=== PATIENT | male | born 1950 | race Caucasian/White ===

== ENCOUNTER 2023-04-02 09:09 | Emergency (ER) | payer MEDICARE, MEDICAID, SELFPAY ==
--- NOTE | ~2023-04-02 | XR_ITS ---
XR chest 2V DATE: 04/02/2023 10:33 INDICATION: Generalized chest pain following fall from wheelchair today TECHNIQUE: AP and lateral views COMPARISON: None FINDINGS: Status post sternotomy. Mild cardiomegaly. Aortic arch calcification, aortic unfolding. Mild discoid atelectasis or scar, left midlung. The lungs are clear of infiltrate or consolidation. N o pleural effusion or pulmonary vascular congestion or pneumothorax is detected. Status post lower anterior cervical spine surgical fusion. IMPRESSION: Mild discoid atelectasis or scar, left midlung Mild cardiomegaly Status post sternotomy Aortic atherosclerosis Status post lower cervical anterior surgical fusion Reviewed, dictated and finalized at location [facility]. CULTIVATOR
--- NOTE | ~2023-04-02 | CT_ITS ---
EXAMINATION: CT brain wo con DATE: 04/02/2023 10:19 INDICATION: Unwitnessed fall. Patient on MLO). Dementia. TECHNIQUE: Computed tomography (CT) of the head was performed without intravenous contrast. The mA wa s adjusted according to patient size. Iterative reconstruction technique was employed. Exam dose: 60 5.33 mGy-cm total exam DLP. COMPARISON: None FINDINGS: Prominent bilateral vertebral artery calcification and prominent bilateral carotid siphon i nternal carotid artery calcifications. There is focal chronic encephalomalacia in the right frontal lobe, which may be due to old infarct or hematoma. No prior CT examination of the head is available for comparison. Chronic lacunar infarct in the left periventricular area No intracranial mass lesion or hemorrhage, midline shift or mass effect. No subdural or epidural bar gayle is detected. There is nonspecific diminished attenuation cerebral white matter, likely due to chronic small vessel ischemic changes. The included mastoid air cells and paranasal sinuses are normally developed and well aerated with the exception of an underdeveloped right frontal sinus. No fracture or bone destruction of the cranial vault. IMPRESSION: Focal right frontal encephalomalacia consistent with old infarct or hematoma Cerebral atherosclerosis and chronic small vessel ischemic changes of the cerebral white matter No skull fracture or acute intracranial finding Reviewed, dictated and finalized at [facility]. Reviewed, dictated and finalized at location [facility]. REMOVAL/PLOWING IMPRESSION: Focal right frontal encephalomalacia consistent with old infarct o r hematoma Cerebral atherosclerosis and chronic small vessel ischemic changes of the cereb ral white matter No skull fracture or acute intracranial finding
[2023-04-02 09:11] VITALS: BP 130/67; PULSE 86; RESP 17; TEMP 36.6; O2SAT 98
--- NOTE | 2023-04-02 09:22 | ECG_ITS ---
Measurements Intervals [place] Rate: 86 P: 35 IA: 183 QRS: -54 QRSD: 107 T: 86 QT: 382 QTc: 459 Interpretive Statements SINUS RHYTHM PATTERN CONSISTENT WITH PULMONARY DISEASE LEFT ANTERIOR FASCICULAR BLOCK [QRS AXIS <= -45, QR IN I, RS IN II] NONSPECIFIC ST & T-WAVE ABNORMALITY NO PREVIOUS ECG AVAILABLE FOR COMPARISON Electronically Signed On 04-02-2023 19:49:24 FOOD ANALYST by Alona Clifton M.D.
[2023-04-02 09:34] LABS: Basophils Absolute Auto 0.1 K/mm3 (0.0-0.1); Basophils Percent Auto 0.6 % (0.2-1.2); Eosinophils Absolute Auto 0.1 K/mm3 (0-0.3); Eosinophils Percent Auto 0.5 % (0-4.4); Hematocrit 44.5 % (42.0-52.0); Hemoglobin 14.1 g/dL (14.0-18.0); Lymphocytes Absolute Auto 1.36 K/mm3 (0.9-3.2); Lymphocytes Percent Auto 13.1 % (18.3-44.2); Mean Corpuscular HGB Conc 31.7 g/dl (32-36); Mean Corpuscular Volume 88.5 fl (80-100); Mean Platelet Volume 10.3 fl (7.4-10.4); Monocytes Absolute Auto 0.8 K/mm3 (0.1-0.6); Monocytes Percent Auto 7.8 % (2.6-8.5); Platelet Count Result 247 k/mm3 (150-375); Red Blood Count 5.03 M/mm3 (4.6-6.20); Red Cell Distribution Width 14.6 % (11.5-14.5); White Blood Count 10.4 K/mm3 (4.5-10.0)
--- NOTE | 2023-04-02 09:38 | ED.GENADULT ---
HPI - General Adult General Chief complaint: Fall Stated complaint: fall Time Seen by Provider: 04/02/23 09:10 Source: patient and old records reviewed Mode of arrival: EMS Limitations: dementia History of Present Illness HPI narrative: Patient is a 72-year-old male, with past medical history of dementia, who presents the ED via EMS with report of a fall. Patient is a resident of [facility]. Per [facility] staff, he had a fall out of his wheelchair while trying to get in to his bed. This was unwitnessed. They found patient on the ground. It is unknown if he hit his head or lost consciousness. He is on Eliquis. Patient unable to tell me how the fall occurred. Does not remember falling. He complains of pain to his chest and head. Unable to tell me when chest pain started or describe this further. Denies neck or back pain. Denies shortness of breath. Review of Systems Review of Systems: CONSTITUTIONAL: Denies fever, chills, or sweats. CARDIOVASCULAR: See HPI RESPIRATORY: Denies cough or dyspnea. GASTROINTESTINAL: Denies abdominal pain, nausea, vomiting. MUSCULOSKELETAL: Denies back pain, extremity pain, myalgia. NEUROLOGIC: See HPI All systems reviewed & are unremarkable except as noted in HPI and below Exam Narrative: GENERAL: Chronically ill appearing, morbidly obese with BMI of 42.5, non-toxic, in no acute distress. HEAD: Normocephalic, atraumatic. No contusions or obvious hematomas. RESPIRATORY: Airway patent, respirations nonlabored. Clear to auscultation bilaterally. No significant focal lung sounds. No distress. CARDIOVASCULAR: Regular rate and rhythm without murmurs, rubs, or gallops. ABDOMINAL: Soft, nontender, nondistended. Normoactive BS. GENITAL: Scrotum appears erythematous and enlarged, nontender. Patient reports this is a chronic finding. MUSCULOSKELETAL: No gross deformities. R BKA. Mild tremor of LLE. No appreciable midline thoracic or lumbar spinal tenderness. SKIN: Warm, dry, normal color. NEURO: A&O X2-3, able to answer most questions. Speech clear. Cranial nerves II-XII grossly intact. No ataxic movements. PSYCHIATRIC: Flat affect. Normal interaction. Course Vital Signs Vital signs: Vital Signs Temperature 97.8 F 04/02/23 09:11 Pulse Rate 86 04/02/23 09:11 Respiratory Rate 17 04/02/23 09:11 Blood Pressure 130/67 04/02/23 09:11 Pulse Oximetry 98 04/02/23 09:11 Oxygen Delivery Room Air 04/02/23 09:11 Temperature 97.8 F 04/02/23 09:11 Pulse Rate 86 04/02/23 09:11 Respiratory Rate 17 04/02/23 09:11 Blood Pressure 153/78 H 04/02/23 09:47 Pulse Oximetry 99 04/02/23 10:00 Oxygen Delivery Room Air 04/02/23 09:11 Medical Decision Making MDM Narrative Medical decision making narrative: Patient presented to ED from local [facility] with unwitnessed ground level fall from , unknown head injury. Hx dementia, does appear slightly confused, though able to answer all my questions. On Eliquis. Patient complaining of pain to head, chest. No traumatic findings on exam. CT brain without acute findings. Patient refused CT of the cervical spine. No significant midline spinal tenderness on my exam. Initial EKG with nonspecific ST changes, no acute ST elevation or depression. Baseline troponin negative. Chest x-ray without acute findings, no focal consolidation. Basic laboratory studies fairly unremarkable. Minimal leukocytosis of 10.4. Stable kidney function, normal electrolytes. 3hr Troponin also resulted negative. Patient w/o any ongoing chest pain. Does c/o nonspecific pain all over but reporting he just wants to leave and go home. Patient will be discharged back to fpc. Given return precautions. D/C in stable condition. Medical Records Medical records reviewed: Yes I reviewed the external patient's medical records. Vital Signs Vital Signs: Vital Signs Temperature 97.8 F 04/02/23 09:11 Pulse Rate 86 04/02/23 09:11
[2023-04-02 09:42] VITALS: O2SAT 95
[2023-04-02 09:45] VITALS: O2SAT 100
[2023-04-02 09:47] VITALS: BP 153/78; O2SAT 100
[2023-04-02 09:47] LABS: INR 1.1; Prothrombin Time 14.4 Seconds (11.1-14.7)
[2023-04-02 09:48] LABS: Partial Thromboplastin Time 32.6 SECONDS (22.3-36.8)
[2023-04-02 09:49] LABS: Alanine Aminotransferase 20 U/L (6-50); Albumin Level 4.2 g/dL (3.5-5.1); Alkaline Phosphatase 96 U/L (38-126); Anion Gap 12 mmol/L (8-16); Aspartate Amino Transferase 18 U/L (17-59); Bilirubin,Total 0.8 mg/dL (0.2-1.3); Blood Urea Nitrogen 13 mg/dL (9-20); Calcium 9.2 mg/dL (8.4-10.2); Carbon Dioxide 23 mmol/L (22-30); Chloride 99 mmol/L (98-107); Estimated CRCL calculation 82 ml/min; Estimated Glomerular Filt Rate > 60; Glucose 200 mg/dL (65-110); Lipase 53 U/L (23-300); Sodium 134 mmol/L (137-145)
[2023-04-02 10:00] VITALS: O2SAT 99
[2023-04-02 10:00] LABS: NT Pro B Type Natriuretic Pept 350 pg/mL (19.9-100); Troponin I < 0.012 ng/mL (0.000-0.034)
[2023-04-02 13:09] LABS: Troponin I < 0.012 ng/mL (0.000-0.034)
== END 2023-04-02 16:33 ==
PROVIDERS: Emergency Provider Physician Assistant; PCP Hospitalist
DX: S09.90XA Unspecified injury of head, initial encounter (principal); F03.90 Unspecified dementia, unspecified severity, without behavioral disturbance, psychotic disturbance, mood disturbance, and anxiety; Z79.01 Long term (current) use of anticoagulants; R94.31 Abnormal electrocardiogram [ECG] [EKG]; I51.7 Cardiomegaly; I70.0 Atherosclerosis of aorta; Z98.1 Arthrodesis status; I67.2 Cerebral atherosclerosis; W05.0XXA Fall from non-moving wheelchair, initial encounter
CPT/HCPCS: 36415; 70450; 71046; 80053; 83690; 83880; 84484; 85025; 85610; 85730; 93005; 99284

== ENCOUNTER 2023-05-21 13:46 | Emergency (ER) | payer MEDICARE, MEDICAID, SELFPAY ==
--- NOTE | ~2023-05-21 | CT_ITS ---
CT head without contrast Indication: Status post fall COMPARISON: 04/02/2023 Technique: Serial scans were obtained through the brain without the administration of contrast. Dose reduction technique was used on this scan by utilizing automated exposure control and iterative recon struction technique. The dose-length product (DLP) was 681.00 mGy-cm. Findings: There is no evidence of intracranial hemorrhage, mass lesion, or acute infarct. The ventri cles and subarachnoid spaces are dilated, consistent with mild atrophy. Stable area of chronic enceph alomalacia in the right frontal lobe. There is no evidence of edema, mass effect or midline shift. The visualized paranasal sinuses and mastoid air cells are clear. Impression: No intracranial hemorrhage, mass, or acute infarct. Stable chronic encephalomalacia right frontal lobe. Atrophy and chronic white matter changes, as above. Reviewed, dictated and finalized at [facility]. PROCESS HELPER Impression: No intracranial hemorrhage, mass, or acute infarct. Stable chronic encephalomalacia right frontal lobe. Atrophy and chronic white matter changes, as above.
--- NOTE | ~2023-05-21 | XR_ITS ---
AP view of the pelvis Clinical history: Pain Findings: No acute fracture or dislocation is seen. Osseous alignment is anatomic. Bilateral hip and SI joint spaces are preserved. Soft tissues are unremarkable. Impression: No significant abnormality is seen. Reviewed, dictated and finalized at location [facility]. ESS CASHIER Impression: No significant abnormality is seen.
--- NOTE | ~2023-05-21 | XR_ITS ---
Portable chest x-ray Comparison: 04/02/2023 Clinical History: Status post fall Findings: Lungs are clear, without focal consolidation or pleural effusion. Cardiomediastinal silho uette is stable, with loop recorder. Bones and soft tissues are unremarkable. Impression: Clear lungs. Reviewed, dictated and finalized at location . D ENGINEER Impression: Clear lungs.
[2023-05-21 13:40] VITALS: BP 122/75; PULSE 65; RESP 17; TEMP 36.6; O2SAT 98
--- NOTE | 2023-05-21 13:46 | ECG_ITS ---
Measurements Intervals [place] Rate: 64 P: 30 [place]: 197 QRS: -57 QRSD: 114 T: 142 QT: 444 QTc: 458 Interpretive Statements SINUS RHYTHM LEFT ANTERIOR FASCICULAR BLOCK [QRS AXIS <= -45, QR IN I, RS IN II] POSSIBLE ANTERIOR MYOCARDIAL INFARCTION , OF INDETERMINATE AGE [30 ms Q WAVE IN V3/V4, OR R < 0.2 mV IN V4] NONSPECIFIC ST AND T-WAVE ABNORMALITY ABNORMAL ECG COMPARED TO ECG 04/02/2023 09:43:17 NO SIGNIFICANT CHANGES Electronically Signed On 05-21-2023 14:16:54 POLE TRUCK DRIVER by Shorty Ba M.D.
--- NOTE | 2023-05-21 14:21 | ED.FALL ---
HPI - Fall General Chief Complaint: Fall Stated Complaint: unwitnessed GLF Time Seen by Provider: 05/21/23 14:03 Source: patient and EMS Mode of arrival: EMS Limitations: other (cognitive deficit) History of Present Illness HPI Narrative: Patient presents to the emergency department after an unwitnessed fall at his facility. Patient reports he slipped out of the bed. He is on anticoagulation so was sent in for further evaluation. He denies any focal pain or injuries. Related Data Allergies Allergy/AdvReac Type Severity Reaction Status Date / Time No Known Allergies Allergy Verified 05/21/23 16:11 Review of Systems Review of Systems: ROS unobtainable: Yes unobtainable due to medical condition [facility] Past Medical History Medical History (Updated 05/21/23 @ 16:19 by Alberta Spann PA-C) History of COPD History of diabetes mellitus History of gastroesophageal reflux (GERD) History of hypertension Social History Social History (Updated 05/21/23 @ 14:23 by Alberta Spann PA-C) Substance use: never Exam Narrative: GENERAL: Elderly, well-nourished, and in no acute distress. HEAD: Normocephalic, atraumatic. EYES: PERRLA and EOMI. ENT: Nares clear, no rhinorrhea or epistaxis. Mucous membranes moist. Oropharynx without tonsillar hypertrophy exudate or other lesions. Bilateral TMs pearly thomas non-bulging NECK: Supple. No adenopathy or masses. No midline spinal tenderness CHEST: Clear to auscultation. No respiratory distress. No wheezes rales or rhonchi HEART: Regular rate and rhythm. No murmur heard. Normal peripheral pulses. ABDOMEN: Soft, nontender, nondistended, normal active bowel sounds. BACK: No midline spinal tenderness EXTREMITIES: Normal range of motion. No edema or obvious deformity. Right BKA SKIN: Warm, dry, no rash. NEURO: No focal deficits. Alert and oriented x1-2. CN II-XII grossly intact PSYCH: Flat mood and affect Course Course Emergency Course: Patient updated on his workup Vital Signs Vital signs: Vital Signs Temperature 97.9 F 05/21/23 13:40 Pulse Rate 65 05/21/23 13:40 Respiratory Rate 17 05/21/23 13:40 Blood Pressure 122/75 05/21/23 13:40 Pulse Oximetry 98 05/21/23 13:40 Oxygen Delivery Room Air 05/21/23 13:40 Temperature 97.9 F 05/21/23 13:40 Pulse Rate 71 05/21/23 16:11 Respiratory Rate 15 05/21/23 16:11 Blood Pressure 116/73 05/21/23 16:11 Pulse Oximetry 99 05/21/23 16:11 Oxygen Delivery Room Air 05/21/23 13:40 MDM - Fall MDM Narrative Medical decision making narrative: Patient presents to the emergency department after an unwitnessed fall today at his facility. Patient is on anticoagulation so was sent for evaluation. No obvious signs of trauma. Patient denies any pain. His vitals are stable. He is neurologically intact at baseline. CBC and metabolic panel without concerning findings. UA with evidence of infection. This will be sent for culture. Patient will be started on oral antibiotics. Chest and pelvic x-ray without acute findings. CT brain without acute abnormalities. Patient updated on his workup. Instructed to follow up with primary provider. Given warnings to return to the ER Differential Diagnosis Differential diagnosis: Likely concussion without loss of consciousness and other (intracranial hemorrhage, electrolyte derangement, UTI) Lab Data Attestation: I reviewed the patient's lab results. 05/21/23 15:01 05/21/23 15:01 Labs: Lab Results 05/21/23 Range/Units 15:01 WBC 6.7 (4.5-10.0) K/mm3 RBC 5.23 (4.6-6.20) M/mm3 Hgb 14.9 (14.0-18.0) g/dL Hct 45.9 (42.0-52.0) % MCV 87.8 (80-100) fl MCH 28.5 (26-34) pg MCHC 32.5 (32-36) g/dl RDW 14.2 (11.5-14.5) % Plt Count 210 (150-375) k/mm3 MPV 10.6 H (7.4-10.4) fl Immature Gran % (Auto) 1.2 H (0-0.5) % Neut % (Auto) 68.9 (45.5-73.1) % Lymph % (Auto) 15.2 L (18.3-44.2) % [place] % (Auto)
--- NOTE | 2023-05-21 14:40 | PC.NURSE ---
Pt to CT scan via stretcher at this time.
[2023-05-21 15:09] VITALS: BP 110/66; PULSE 64; RESP 17; O2SAT 100
[2023-05-21 15:09] LABS: Basophils Percent Auto 0.6 % (0.2-1.2); Eosinophils Absolute Auto 0.1 K/mm3 (0-0.3); Eosinophils Percent Auto 1.9 % (0-4.4); Hematocrit 45.9 % (42.0-52.0); Hemoglobin 14.9 g/dL (14.0-18.0); Immature Granulocyte Absolute 0.08 K/mm3 (0.00-0.031); Immature Granulocyte Percent A 1.2 % (0-0.5); Lymphocytes Absolute Auto 1.02 K/mm3 (0.9-3.2); Lymphocytes Percent Auto 15.2 % (18.3-44.2); Mean Corpuscular HGB Conc 32.5 g/dl (32-36); Mean Corpuscular Hemoglobin 28.5 pg (26-34); Mean Corpuscular Volume 87.8 fl (80-100); Mean Platelet Volume 10.6 fl (7.4-10.4); Monocytes Absolute Auto 0.8 K/mm3 (0.1-0.6); Monocytes Percent Auto 12.2 % (2.6-8.5); Neutrophils Absolute Auto 4.6 K/mm3 (1.3-6.7); Neutrophils Percent Auto 68.9 % (45.5-73.1); Platelet Count Result 210 k/mm3 (150-375); Red Blood Count 5.23 M/mm3 (4.6-6.20); Red Cell Distribution Width 14.2 % (11.5-14.5); White Blood Count 6.7 K/mm3 (4.5-10.0)
[2023-05-21 15:19] LABS: Creatine Kinase 34 U/L (55-170)
[2023-05-21 15:33] LABS: Appearance Urine Clear (Clear); Bacteria Urine None Seen /hpf; Bilirubin Urine Negative (Negative); Blood Urine Negative (Negative); Budding Yeast Urine Present /hpf; Color Urine Yellow (Yellow); Glucose Urine UA 3+ mg/dL (Negative); Ketones Urine Negative (Negative); Leukocyte Esterase Ur 1+ LEU/UL (Negative); Nitrate Urine Negative (Negative); Non Pathogenic Casts 0-2; Protein Urine Negative (Negative); RBC Urine 0-2 /hpf (0-2); Specific Grav Ur 1.014 (1.001-1.035); Squamous Epithelial Cell Urine None seen /hpf (Few); Urobilinogen Urine 0.2 mg/dL (<2.0); WBC Urine 21-50 /hpf; pH Urine 5.5 (5.0-9.0)
[2023-05-21 15:34] LABS: Add Urine Microscopic? YES
[2023-05-21 16:11] VITALS: BP 116/73; PULSE 71; RESP 15; O2SAT 99
[2023-05-21 16:11] LABS: Anion Gap 8 mmol/L (8-16); Blood Urea Nitrogen 16 mg/dL (9-20); Carbon Dioxide 23 mmol/L (22-30); Chloride 104 mmol/L (98-107); Estimated CRCL calculation 75 ml/min; Estimated Glomerular Filt Rate 60; Glucose 160 mg/dL (65-110); Potassium 3.8 mmol/L (3.4-5.0); Sodium 135 mmol/L (137-145)
--- NOTE | 2023-05-21 16:14 | PC.NURSE ---
nurse to nurse report called to [facility] at this time, spoke to Lucía and gave update on pt status and POC
--- NOTE | 2023-05-21 18:10 | PC.NURSE ---
This RN offered pt a dinner tray while waiting for EMS transport, declined. States I will wait to eat for when I get back. Pt given a drink as requested.
== END 2023-05-21 19:35 ==
PROVIDERS: Emergency Provider Physician Assistant; PCP Hospitalist
DX: N39.0 Urinary tract infection, site not specified (principal); J44.9 Chronic obstructive pulmonary disease, unspecified; E11.9 Type 2 diabetes mellitus without complications; I10 Essential (primary) hypertension; Z79.01 Long term (current) use of anticoagulants; W06.XXXA Fall from bed, initial encounter
CPT/HCPCS: 36415; 70450; 71045; 72170; 80048; 81001; 82550; 85025; 87086; 93005; 99284

== ENCOUNTER 2023-05-22 15:14 | Emergency (ER) | payer MEDICARE, MEDICAID, SELFPAY ==
--- NOTE | ~2023-05-22 | CT_ITS ---
Noncontrast CT scan of the cervical spine Technique: Multiple contiguous axial [address] images of the cervical spine were obtained and rec onstructed in 2D sagittal and coronal planes on the acquisition scanner. Dose reduction technique was used on this scan by utilizing automated exposure control, adjustment of the mA and/or kV according to patient size. The dose-length product (DLP) was 603.81 mGy-cm. Clinical History: Pain Findings: No acute fracture identified. There is anterior fusion of C5-C7. There is severe degenerati ve disc narrowing at C4-C5. There is 2 mm anterolisthesis of C3 over C4. There is scattered facet gabriele nt degenerative changes throughout cervical spine. No prevertebral soft tissue swelling. Impression: No acute fracture. 2 mm anterolisthesis of C3 over C4. Anterior fusion of C5-C7. Degenerative change, as above. Reviewed, dictated and finalized at [facility]. ITY CHECKER Impression: No acute fracture. 2 mm anterolisthesis of C3 over C4. Anterior fusion of C5-C7. Degenerative change, as above.
--- NOTE | ~2023-05-22 | CT_ITS ---
Non-contrast Head CT History: Status post fall COMPARISON: 05/21/2023 Technique: Axial non-contrast imaging of the brain was performed. Dose reduction technique was used on this scan by utilizing automated exposure control and iterative reconstruction technique. The dose -length product (DLP) was 605.33 mGy-cm. Findings: There is no evidence of intracranial hemorrhage, mass lesion, or acute infarct. Stable chr onic encephalomalacia at the right frontal lobe. The ventricles and subarachnoid spaces are normal i n size. The calvarium appears normal. The visualized paranasal sinuses and mastoid air cells are cl ear. Impression: No acute abnormality seen. Stable chronic right frontal lobe encephalomalacia. Reviewed, dictated and finalized at location . ICK HELPER Impression: No acute abnormality seen. Stable chronic right frontal lobe encephalomalacia.
[2023-05-22 15:10] VITALS: BP 142/78; PULSE 78; RESP 16; TEMP 36.6; O2SAT 99
--- NOTE | 2023-05-22 15:57 | ED.FALL ---
HPI - Fall General Chief Complaint: Fall Stated Complaint: ROLLED OUT OF HIS LOW BED Time Seen by Provider: 05/22/23 15:24 History of Present Illness HPI Narrative: Patient is a 72-year-old male presenting after rolling out of his bed. Coming from a nursing facility. States that he was turning over in his bed and he accidentally fell out. States that he hurts all over which is normal. Did not lose consciousness. He is on Eliquis. Related Data Home Medications Medication Instructions Recorded Confirmed apixaban 5 mg tablet (Eliquis) mg 05/22/23 empagliflozin 10 mg tablet mg 05/22/23 (Jardiance) fluoxetine 10 mg capsule mg 05/22/23 fluticasone propionate 50 intranasal 05/22/23 mcg/actuation nasal spray,suspension metoprolol tartrate 25 mg tablet mg 05/22/23 risperidone 2 mg tablet mg 05/22/23 Allergies Allergy/AdvReac Type Severity Reaction Status Date / Time No Known Allergies Allergy Verified 05/22/23 15:38 Review of Systems Review of Systems: All systems reviewed & are unremarkable except as noted in HPI and below PMFSH Past Medical History Medical History History of COPD History of diabetes mellitus History of gastroesophageal reflux (GERD) History of hypertension Social History Social History Substance use: never Exam Narrative: GENERAL: Nontoxic, no acute distress, sitting up in bed HEAD: Normocephalic, atraumatic. EYES: PERRLA and EOMI. ENT: Grossly unremarkable NECK: Supple. No midline tenderness, mild bilateral paraspinal tenderness CHEST: Clear to auscultation. No respiratory distress. HEART: Regular rate and rhythm ABDOMEN: Soft, nontender, nondistended EXTREMITIES: Normal range of motion. +R BKA SKIN: Warm, dry, no rash. NEURO: Alert and oriented x3. Moving all extremities spontaneously PSYCH: Normal mood and affect. Course Vital Signs Vital signs: Vital Signs Temperature 98 F 05/22/23 15:10 Pulse Rate 78 05/22/23 15:10 Respiratory Rate 16 05/22/23 15:10 Blood Pressure 142/78 H 05/22/23 15:10 Pulse Oximetry 99 05/22/23 15:10 Temperature 98 F 05/22/23 15:10 Pulse Rate 70 05/22/23 19:15 Respiratory Rate 16 05/22/23 19:15 Blood Pressure 112/70 05/22/23 19:15 Pulse Oximetry 97 05/22/23 19:15 MDM - Fall MDM Narrative Medical decision making narrative: 72-year-old male presenting after falling out of his bed a shelter. Vital stable. Neurologically intact. CT brain and C-spine without acute abnormalities. Patient is safe to return to his nursing facility. Tylenol for any pain. Recommend PCP follow-up. Discharged in stable condition. Differential Diagnosis Differential diagnosis: Likely other (Fall from bed, close head injury) Medical Records Attestation: I reviewed the patient's medical records. Imaging Data Radiologist's impression: ITS Impressions Head CT 05/22/23 16:39 Impression: No acute abnormality seen. Stable chronic right frontal lobe encephalomalacia. Cervical Spine CT 05/22/23 16:40 Impression: No acute fracture. 2 mm anterolisthesis of C3 over C4. Anterior fusion of C5-C7. Degenerative change, as above. Critical Care Time Critical Care Time Critical Care Time: No Discharge Plan Discharge Clinical Impression: Fall Patient Disposition: NH [facility]/Asst Living Condition: Stable Instructions: Antibiotic Form, Fall Prevention for Older Adults (ED) Additional Instructions: The imaging today shows no new injuries. Please continue taking the antibiotics that we started you on yesterday. Follow-up with your PCP. Prescriptions: No Action risperidone 2 mg tablet fluoxetine 10 mg capsule fluticasone propionate 50 mcg/actuation spray,suspension INTRANASAL metoprolol tartrate
[2023-05-22 16:00] VITALS: BP 149/87; PULSE 67; RESP 16; O2SAT 97
[2023-05-22] MEDS: ACETAMINOPHEN 500 MG TABLET 1000 MG PO (16:08)
[2023-05-22 17:00] VITALS: BP 125/74; PULSE 63; RESP 16; O2SAT 97
--- NOTE | 2023-05-22 17:59 | PC.NURSE ---
HAVE ATTEMPTED X2 TO CALL [facility] FOR REPORT.
[2023-05-22 18:00] VITALS: BP 110/57; PULSE 65; RESP 16; O2SAT 97
[2023-05-22 19:15] VITALS: BP 112/70; PULSE 70; RESP 16; O2SAT 97
== END 2023-05-22 19:15 ==
PROVIDERS: Emergency Provider Emergency Medicine; PCP Hospitalist
DX: Z04.3 Encounter for examination and observation following other accident (principal); J44.9 Chronic obstructive pulmonary disease, unspecified; E11.9 Type 2 diabetes mellitus without complications; I10 Essential (primary) hypertension; K21.9 Gastro-esophageal reflux disease without esophagitis; Z98.1 Arthrodesis status; Z79.01 Long term (current) use of anticoagulants; Z79.84 Long term (current) use of oral hypoglycemic drugs; G93.89 Other specified disorders of brain; W06.XXXA Fall from bed, initial encounter
CPT/HCPCS: 70450; 72125; 99284; A9270

== ENCOUNTER 2023-06-10 21:12 | Emergency (ER) | payer MEDICARE, MEDICAID, SELFPAY ==
--- NOTE | ~2023-06-10 | CT_ITS ---
EXAMINATION: CT cervical spine wo con DATE: 06/10/2023 22:44 INDICATION: Neck pain TECHNIQUE: Computed tomography (CT) of the cervical spine was performed without intravenous contrast. The dose-length product (DLP) was 637.00 mGy-cm. Automated exposure control and iterative reconstruc tion technique were employed. COMPARISON: 05/22/2023 FINDINGS: There are 2 mm of stable anterolisthesis of C3 on C4. Changes of anterior fusion are noted from C5 through C7. There is severe loss of intervertebral disc space height at C4-5 and C7-T1. The o dontoid process is intact. There is multilevel severe facet joint osteoarthritis on the left. IMPRESSION: 1. Surgical changes and severe cervical spondylosis without acute findings. Reviewed, dictated and finalized at location F. CUTTER
--- NOTE | ~2023-06-10 | XR_ITS ---
EXAMINATION: [id number] DATE: 06/10/2023 22:51 INDICATION: Right knee pain TECHNIQUE: Two views of the right knee were obtained. COMPARISON: None. FINDINGS: There are changes of below-knee amputation. Alignment is normal. No fracture or osteochondr al lesion. There is mild tricompartmental osteoarthritis characterized by tiny marginal osteophytes. No joint effusion/synovitis. Calcified atherosclerosis is noted. IMPRESSION: 1. No acute osseous abnormality. Reviewed, dictated and finalized at location F. S COMMUNICATIONS MANAGER
--- NOTE | ~2023-06-10 | CT_ITS ---
EXAMINATION: CT brain wo con INDICATION: Head injury COMPARISON: 05/22/2023 TECHNIQUE: Standard unenhanced head CT. The dose-length product (DLP) was 681.00 mGy-cm. The mA was a djusted according to patient size. Iterative reconstruction technique was employed. FINDINGS: No acute intraparenchymal hemorrhage. No evidence of mass lesion. No evidence of acute infa rction. Encephalomalacia is again noted in the right frontal lobe. There is an old lacunar infarct of the left myers radiata. There is mild periventricular and subcortical hypodensity probably related to small vessel ischemic disease. There is mild prominence of the sulci and ventricles related to cer ebral atrophy. Intracranial calcified cerebral atherosclerosis is noted. No extra-axial collections. No mass effect or midline shift. Changes in the globes are likely from ocular lens surgery. The visua lized sinuses and mastoid air cells are well aerated. IMPRESSION: 1. No acute intracranial abnormality. 2. Age related findings. Reviewed, dictated and finalized at location F. DOCTORAL RESEARCH ASSOCIATE
--- NOTE | ~2023-06-10 | CT_ITS ---
EXAMINATION: CT thoracic lumbar wo con DATE: 06/10/2023 22:45 INDICATION: Back pain after fall TECHNIQUE: Computed tomography (CT) of the thoracic and lumbar spine was performed without intravenou s contrast. The dose-length product (DLP) was 2269.21 mGy-cm. Iterative reconstruction was used. COMPARISON: None FINDINGS: Thoracic Spine: Bone alignment is normal. There is no fracture. The thoracic vertebral body heights a re maintained. There is severe loss of intervertebral disc space height at multiple levels in the tho racic spine. Small degenerative osteophytes project from the anterior endplates of multiple vertebral bodies. Calcified coronary artery atherosclerosis is noted. There is a 1.3 cm low-density mass of th e right adrenal gland, consistent with an adenoma. Lumbar Spine: Bone alignment is normal. There is no fracture. There is severe loss of intervertebral disc space height at L3-4 and L5-S1. There is mild lumbar facet joint osteoarthritis. Prevertebral so ft tissues are normal. IMPRESSION: 1. Severe thoracic spondylosis without acute findings. 2. Severe lumbar spondylosis at L3-4 and L5-S1 without acute findings. Reviewed, dictated and finalized at location F. INSPECTOR HELPER
[2023-06-10 21:11] VITALS: BP 112/84; PULSE 62; RESP 16; TEMP 36.3; O2SAT 98
[2023-06-10 21:17] VITALS: BP 112/84; PULSE 62; RESP 12; O2SAT 100
[2023-06-10 21:31] VITALS: BP 107/63; PULSE 61; RESP 16; O2SAT 99
[2023-06-10 21:46] VITALS: BP 99/75; PULSE 64; RESP 14; O2SAT 98
[2023-06-10 22:02] VITALS: BP 94/52; PULSE 65; RESP 17; O2SAT 100
[2023-06-10] MEDS: LORazepam INJ (*CRX) 2 MG/ML VIAL 1 MG IM (22:26)
--- NOTE | 2023-06-10 22:30 | PC.NURSE ---
pt refusing to wear vital equipment correctly. pt refusing to wear c collar and states ma'am I am doing much better, do not put thing back on me .
--- NOTE | 2023-06-10 23:39 | ED.GENADULT ---
HPI - General Adult General Chief complaint: Fall Stated complaint: fall Time Seen by Provider: 06/10/23 21:43 History of Present Illness HPI narrative: Patient is a 72-year-old gentleman who presents emergency department with chief complaint of ground level fall. The patient is resident of local nursing facility and apparently fell out of his bed. The patient is complaining of back and neck pain. Patient is baseline alert and oriented x1. l Related Data Home Medications Medication Instructions Recorded Confirmed apixaban 5 mg tablet (Eliquis) mg 05/22/23 empagliflozin 10 mg tablet mg 05/22/23 (Jardiance) fluoxetine 10 mg capsule mg 05/22/23 fluticasone propionate 50 intranasal 05/22/23 mcg/actuation nasal spray,suspension metoprolol tartrate 25 mg tablet mg 05/22/23 risperidone 2 mg tablet mg 05/22/23 Allergies Allergy/AdvReac Type Severity Reaction Status Date / Time No Known Allergies Allergy Verified 06/10/23 21:32 Review of Systems Review of Systems: A 10 system review of systems was completed on the patient and is negative except for what is stated in the HPI. Nursing and ancillary documentation was reviewed. [facility] Past Medical History Medical History History of COPD History of diabetes mellitus History of gastroesophageal reflux (GERD) History of hypertension Social History Social History Substance use: never Exam Narrative: GENERAL: Well-appearing, well-nourished, and in no acute distress. HEAD: Normocephalic, atraumatic. EYES: PERRLA and EOMI. ENT: Nares clear, no rhinorrhea or epistaxis. Mucous membranes moist. NECK: Supple. CHEST: Clear to auscultation. No respiratory distress. HEART: Regular rate and rhythm. No murmur heard. Normal peripheral pulses. ABDOMEN: Soft, nontender, nondistended, normal active bowel sounds. Back: Mild tenderness to palpation of the thoracic and lumbar spine EXTREMITIES: Normal range of motion. No edema. Below-knee amputation present the right lower extremity SKIN: Warm, dry, no rash. NEURO: No focal deficits. Alert and oriented x3. PSYCH: Normal mood and affect. Course Vital Signs Vital signs: Vital Signs Temperature 36.3 C L 06/10/23 21:11 Pulse Rate 62 06/10/23 21:11 Respiratory Rate 16 06/10/23 21:11 Blood Pressure 112/84 06/10/23 21:11 Pulse Oximetry 98 06/10/23 21:11 Oxygen Delivery Room Air 06/10/23 21:11 Temperature 36.3 C L 06/10/23 21:11 Pulse Rate 62 06/10/23 21:11 Respiratory Rate 16 06/10/23 21:11 Blood Pressure 112/84 06/10/23 21:11 Pulse Oximetry 98 06/10/23 21:11 Oxygen Delivery Room Air 06/10/23 21:11 Medical Decision Making MDM Narrative Medical decision making narrative: Differential diagnosis includes intracranial hemorrhage, cervical spine fracture, thoracic lumbar spine fracture, right knee injury. Plain film x-rays were obtained of the right knee which showed no evidence of fracture. Helical imaging was obtained of the head C-spine and thoracic and lumbar spine. These imaging showed no evidence of acute intracranial process, acute cervical spine fracture or thoracic or lumbar spine fracture. Given there is no acute findings on the imaging patient will be discharged back to nursing facility. Vital Signs Vital Signs: Vital Signs Temperature 36.3 C L 06/10/23 21:11 Pulse Rate 62 06/10/23 21:11 Respiratory Rate 16 06/10/23 21:11 Blood Pressure 112/84 06/10/23 21:11 Pulse Oximetry 98 06/10/23 21:11 Oxygen Delivery Room Air 06/10/23 21:11 Temperature 36.3 C L 06/10/23 21:11 Pulse Rate 62 06/10/23 21:11 Respiratory Rate 16 06/10/23 21:11 Blood Pressure 112/84 06/10/23 21:11 Pulse Oximetry 98 06/10/23 21:11 Oxygen Delivery Room Air 06/10/23 21:11 Discharge Plan Discharge
[2023-06-11 00:29] VITALS: BP 92/60; PULSE 67; RESP 18; O2SAT 100
== END 2023-06-11 00:33 ==
PROVIDERS: Emergency Provider Emergency Medicine; PCP Hospitalist
DX: S19.9XXA Unspecified injury of neck, initial encounter (principal); S09.90XA Unspecified injury of head, initial encounter; S29.9XXA Unspecified injury of thorax, initial encounter; S39.92XA Unspecified injury of lower back, initial encounter; J44.9 Chronic obstructive pulmonary disease, unspecified; E11.9 Type 2 diabetes mellitus without complications; K21.9 Gastro-esophageal reflux disease without esophagitis; I10 Essential (primary) hypertension; Z89.511 Acquired absence of right leg below knee; Z79.82 Long term (current) use of aspirin; Z79.84 Long term (current) use of oral hypoglycemic drugs; M47.814 Spondylosis without myelopathy or radiculopathy, thoracic region; M47.816 Spondylosis without myelopathy or radiculopathy, lumbar region; M47.812 Spondylosis without myelopathy or radiculopathy, cervical region; W06.XXXA Fall from bed, initial encounter
CPT/HCPCS: 70450; 72125; 72128; 72131; 73560; 96372; 99284; J2060; L0140

== ENCOUNTER 2023-06-18 14:34 | Emergency (ER) | payer MEDICARE, MEDICAID, SELFPAY ==
--- NOTE | ~2023-06-18 | CT_ITS ---
EXAMINATION: CT cervical spine wo con DATE: 06/18/2023 15:41 INDICATION: Neck pain. Head injury. TECHNIQUE: Computed tomography (CT) of the cervical spine was performed without intravenous contrast. Automated exposure control and iterative reconstruction technique were employed. The dose-length pro duct was 482.50 mGy-cm. COMPARISON: CT cervical spine 06/10/2023 FINDINGS: There is 2 mm anterolisthesis of C3 on C4. There is 13 degrees dextroscoliosis of cervical spine. There is kyphosis of cervical spine. There is interbody fusion from C4 to C7 with anterior vonda te and screws from C5 to C7. There is severely decreased disc height at C7-T1. The following disc lev els are specifically discussed: C2-C3: There is mild right and moderate left uncovertebral joint osteoarthritis. There is mild right and severe left facet joint osteoarthritis. There is mild left neural foraminal stenosis. There is no central canal stenosis. C3-C4: There is mild right and severe left uncovertebral joint osteoarthritis. There is mild right an d severe left facet joint osteoarthritis. There is mild left neural foraminal stenosis. There is mild central canal stenosis. C4-C5: There is moderate bilateral uncovertebral joint hypertrophy. There is ankylosis of the left fa cet joint with severe hypertrophy. There is mild right facet joint osteoarthritis.. There is mild maribell ateral neural foraminal stenosis. There is mild central canal stenosis. C5-C6: There is mild bilateral uncovertebral joint hypertrophy. There is mild bilateral facet joint o steoarthritis. There is mild bilateral neural foraminal stenosis. There is no central canal stenosis. C6-C7: There is severe bilateral uncovertebral joint osteoarthritis. There is moderate right and darrion re left facet joint osteoarthritis. There is mild bilateral neural foraminal stenosis. There is mild central canal stenosis. C7-T1: There is moderate and mild left uncovertebral joint osteoarthritis. There is severe bilateral facet joint osteoarthritis. There is mild bilateral neural foraminal stenosis. There is no central ca nal stenosis. IMPRESSION: 1. No fracture. 2. Severe cervical spondylosis. 3. Anterior fusion from C4 to C7. Reviewed, dictated and finalized at location E. Y GRINDER
--- NOTE | ~2023-06-18 | CT_ITS ---
EXAMINATION: CT brain wo con DATE: 06/18/2023 15:41 INDICATION: Head injury. TECHNIQUE: Computed tomography (CT) of the head was performed without intravenous contrast. The mA wa s adjusted according to patient size. Iterative reconstruction technique was employed. The dose-lengt h product was 605.33 mGy-cm. COMPARISON: Head CT 06/10/2023 FINDINGS: There is an old infarct involving the left basal ganglia and left frontoparietal myers rad iata. There is an old infarct in the right frontal lobe. There is no intracranial hemorrhage, acute i nfarction, or abnormal intracranial mass lesion. The ventricles are normal in size. There are likely changes of ocular lens replacement surgeries. There is mild mucosal thickening in the paranasal sinus es. The mastoid air cells are normal. IMPRESSION: 1. 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 Reviewed, dictated and finalized at location E. EMENT OFFICER
--- NOTE | ~2023-06-18 | CT_ITS ---
EXAMINATION: CT thoracic spine wo con DATE: 06/18/2023 15:41 INDICATION: Back pain. Fall. TECHNIQUE: Computed tomography (CT) of the thoracic spine was performed without intravenous contrast. Automated exposure control and iterative reconstruction technique were employed. The dose-length pro duct was 1626.85 mGy-cm. COMPARISON: Thoracic spine CT 06/10/2023 FINDINGS: There is 5 degrees dextrocurvature of thoracic spine. There is mild chronic anterior wedgin g of multiple vertebral bodies. There is mild to moderately decreased disc height at most thoracic le vels. There is multilevel mild to moderate facet joint osteoarthritis. There is multilevel mild neura l foraminal stenosis bilaterally. On the right, there is moderate neural foraminal stenosis at T9-T10 . There is mild central canal stenosis at T8-T9, T9-T10, T11-T12, and T12-L1. IMPRESSION: 1. No fracture. 2. Moderate thoracic spondylosis. Reviewed, dictated and finalized at location E. OELECTRIC PLANT ELECTRICIAN
[2023-06-18 14:35] VITALS: BP 136/55; PULSE 63; RESP 18; TEMP 36.9; O2SAT 100
--- NOTE | 2023-06-18 14:43 | ECG_ITS ---
Measurements Intervals [place] Rate: 60 P: 40 CO: 205 QRS: -54 QRSD: 117 T: 25 QT: 448 QTc: 448 Interpretive Statements SINUS RHYTHM LEFT ANTERIOR FASCICULAR BLOCK BORDERLINE ST-T WAVE ABNORMALITY- ANT/INF LEADS BASELINE ARTIFACT- I, II, III, AVR, AVL, AVF ABNORMAL ECG COMPARED TO ECG 05/21/2023 13:48:36 NO SIGNIFICANT CHANGES Electronically Signed On 06-18-2023 15:24:41 DEMO SPECIALIST by Troy Gutierrez D.O.
--- NOTE | 2023-06-18 14:47 | ED.FALL ---
HPI - Fall General Chief Complaint: Fall Stated Complaint: unwitnessed GLF Source: patient and EMS Mode of arrival: EMS Limitations: other (Patient's baseline mentation) History of Present Illness HPI Narrative: This is a 72-year-old male who presents as report of an unwitnessed ground level fall. Patient states he slid out of bed though states he lost consciousness and does not recall details. He is on Eliquis for atrial fibrillation. He is complaining pain in neck back, and his head. There was reportedly concern for urinary tract infection by facility/EMS based on malodorous urine. It is reported that patient is at his baseline mentation. Related Data Home Medications Medication Instructions Recorded Confirmed apixaban 5 mg tablet (Eliquis) mg 05/22/23 empagliflozin 10 mg tablet mg 05/22/23 (Jardiance) fluoxetine 10 mg capsule mg 05/22/23 fluticasone propionate 50 intranasal 05/22/23 mcg/actuation nasal spray,suspension metoprolol tartrate 25 mg tablet mg 05/22/23 risperidone 2 mg tablet mg 05/22/23 Allergies Allergy/AdvReac Type Severity Reaction Status Date / Time No Known Allergies Allergy Verified 06/10/23 21:32 [facility] Past Medical History Medical History (Updated 06/18/23 @ 22:38 by Robina Garnett MD) Atrial fibrillation History of COPD History of diabetes mellitus History of gastroesophageal reflux (GERD) History of hypertension Social History Social History (Updated 06/18/23 @ 22:38 by Robina Garnett MD) Substance use: never Living arrangements: [facility] Additional living arrangements comments: [facility] Exam Narrative: GENERAL: Well-appearing, well-nourished, and in no acute distress. HEAD: Normocephalic, atraumatic. EYES: Non injected, non icteric. Pupils grossly ENT: Nares clear, no rhinorrhea or epistaxis. NECK: Supple. Patient complains of tenderness to palpation cervical spine though without bony step-offs or malalignment. Patient similarly complains of tenderness palpation thoracic spine without bony step-offs or malalignment. CHEST: No respiratory distress. HEART: Regular rate and rhythm. . ABDOMEN: Soft, nondistended. Obese EXTREMITIES: Normal range of motion. SKIN: Warm, dry, no rash. NEURO: No focal deficits though patient does provide much movement of his bilateral lower extremities. He does state that he can feel gross touch in all extremities and is symmetric x4. Alert. Oriented to self. Answer simple yes and no questions but unable to answer questions about health history. PSYCH: Normal mood and affect. Does not appear to be uncomfortable as he is without furrowed brow or grimace Course Vital Signs Vital signs: Vital Signs Temperature 98.4 F 06/18/23 14:35 Pulse Rate 63 06/18/23 14:35 Respiratory Rate 18 06/18/23 14:35 Blood Pressure 136/55 L 06/18/23 14:35 Pulse Oximetry 100 06/18/23 14:35 Oxygen Delivery Room Air 06/18/23 14:35 Temperature 98 F 06/18/23 17:37 Pulse Rate 96 06/18/23 17:37 Respiratory Rate 16 06/18/23 17:37 Blood Pressure 140/69 06/18/23 17:37 Pulse Oximetry 100 06/18/23 17:37 Oxygen Delivery Room Air 06/18/23 14:35 MDM - Fall MDM Narrative Medical decision making narrative: 72-year-old male presents report of an unwitnessed ground level fall. He is complaining neck pain back pain and head pain. He is on Eliquis history of atrial fibrillation. He endorses loss of consciousness. In the emergency department he is afebrile with vital signs that do show a slightly low diastolic blood pressure at 55 mmHg. C-collar placed on patient due to midline TTP of cervical spine. Patient does become agitated around the time of CT scan. He returns to the room and is still attempting to get out of bed for which he will be given 1 mg IV Ativan and until this takes effect a sitter is placed at 15:43 Patient has spondylosis and evidence of old infa
[2023-06-18 15:19] LABS: Basophils Absolute Auto 0.1 K/mm3 (0.0-0.1); Basophils Percent Auto 0.7 % (0.2-1.2); Eosinophils Absolute Auto 0.1 K/mm3 (0-0.3); Eosinophils Percent Auto 1.4 % (0-4.4); Hematocrit 45.4 % (42.0-52.0); Hemoglobin 14.9 g/dL (14.0-18.0); Immature Granulocyte Absolute 0.05 K/mm3 (0.00-0.031); Immature Granulocyte Percent A 0.7 % (0-0.5); Lymphocytes Absolute Auto 1.43 K/mm3 (0.9-3.2); Lymphocytes Percent Auto 20.6 % (18.3-44.2); Mean Corpuscular HGB Conc 32.8 g/dl (32-36); Mean Corpuscular Hemoglobin 28.7 pg (26-34); Mean Corpuscular Volume 87.3 fl (80-100); Mean Platelet Volume 10.4 fl (7.4-10.4); Monocytes Absolute Auto 0.7 K/mm3 (0.1-0.6); Monocytes Percent Auto 9.4 % (2.6-8.5); Neutrophils Absolute Auto 4.7 K/mm3 (1.3-6.7); Neutrophils Percent Auto 67.2 % (45.5-73.1); Platelet Count Result 231 k/mm3 (150-375); Red Cell Distribution Width 13.9 % (11.5-14.5); White Blood Count 6.9 K/mm3 (4.5-10.0)
[2023-06-18 15:27] LABS: Alanine Aminotransferase 27 U/L (6-50); Albumin Level 3.7 g/dL (3.5-5.1); Alkaline Phosphatase 81 U/L (38-126); Anion Gap 6 mmol/L (8-16); Aspartate Amino Transferase 18 U/L (17-59); Bilirubin,Total 0.5 mg/dL (0.2-1.3); Blood Urea Nitrogen 12 mg/dL (9-20); Carbon Dioxide 26 mmol/L (22-30); Chloride 103 mmol/L (98-107); Estimated Glomerular Filt Rate > 60; Glucose 197 mg/dL (65-110); Sodium 135 mmol/L (137-145)
[2023-06-18 15:35] LABS: Prothrombin Time 13.4 Seconds (11.1-14.7)
--- NOTE | 2023-06-18 15:40 | PC.NURSE ---
Patient agitated and attempting to climb out of stretcher. Patient difficult to redirect. hairspring inspector to sit with patient to prevent fall. EDP made aware and to place orders for medication.
[2023-06-18] MEDS: LORazepam INJ (*CRX) 2 MG/ML VIAL 1 MG IV PUSH (15:52)
[2023-06-18 16:54] LABS: Appearance Urine Clear (Clear); Bacteria Urine None Seen /hpf; Bilirubin Urine Negative (Negative); Blood Urine Negative (Negative); Budding Yeast Urine Present /hpf; Color Urine Yellow (Yellow); Glucose Urine UA 3+ mg/dL (Negative); Ketones Urine Negative (Negative); Leukocyte Esterase Ur Trace LEU/UL (Negative); Need Manual Microscopic Reviewed; Nitrate Urine Negative (Negative); Non Pathogenic Casts 0-2; Protein Urine Negative (Negative); RBC Urine 0-2 /hpf (0-2); Specific Grav Ur 1.019 (1.001-1.035); Squamous Epithelial Cell Urine None seen /hpf (Few)
[2023-06-18 16:56] LABS: Add Urine Microscopic? YES
[2023-06-18] MEDS: FLUCONAZOLE 100 MG TABLET 200 MG PO (17:12)
[2023-06-18 17:37] VITALS: BP 140/69; PULSE 96; RESP 16; TEMP 36.6; O2SAT 100
== END 2023-06-18 19:56 ==
PROVIDERS: Emergency Provider Student in an Organized Health Care Education/Training Program; PCP Hospitalist
DX: I44.0 Atrioventricular block, first degree (principal); I44.4 Left anterior fascicular block; M47.814 Spondylosis without myelopathy or radiculopathy, thoracic region; M47.812 Spondylosis without myelopathy or radiculopathy, cervical region; E11.65 Type 2 diabetes mellitus with hyperglycemia; N39.0 Urinary tract infection, site not specified; I48.91 Unspecified atrial fibrillation; J44.9 Chronic obstructive pulmonary disease, unspecified; I10 Essential (primary) hypertension; Z79.01 Long term (current) use of anticoagulants; W06.XXXA Fall from bed, initial encounter
CPT/HCPCS: 36415; 70450; 72125; 72128; 80053; 81001; 85025; 85610; 85730; 87086; 93005; 96374; 99284; A9270; J2060; L0140

== ENCOUNTER 2023-06-20 20:10 | Emergency (ER) | payer MEDICARE, MEDICAID, SELFPAY ==
[2023-06-20] VITALS (7 sets, daily range): BP systolic 103–177; BP diastolic 67–89; PULSE 70–88; RESP 14–19; TEMP 36.4; O2SAT 79–100
--- NOTE | ~2023-06-20 | CT_ITS ---
EXAMINATION: CT cervical spine wo con DATE: 06/20/2023 20:57 INDICATION: trauma TECHNIQUE: Computed tomography (CT) of the cervical spine was performed without intravenous contrast. Automated exposure control and iterative reconstruction technique were employed. The dose-length pro duct was 527.10 mGy-cm. COMPARISON: 06/18/2023. FINDINGS: Vertebral Body Alignment: Intact. Minimal altered level grade 1 listheses, unchanged Craniocervical and atlantoaxial alignment: Moderate degenerative change. Alignment intact. Osseous structures/fracture: No evidence of a lytic or blastic process in the visualized spine. No e vidence of acute fracture. Uncomplicated ACDF hardware spanning C5-C7. Cervical soft tissues: The paraspinal soft tissues planes are maintained. Degenerative changes: Degenerative changes, without severe neural foraminal or central canal narrowin g. IMPRESSION: No acute fracture or traumatic malalignment in the cervical spine. Reviewed, dictated and finalized at location K.
--- NOTE | ~2023-06-20 | CT_ITS ---
EXAMINATION: CT brain wo con DATE: 06/20/2023 20:57 INDICATION: fall head injury on Eliquis . TECHNIQUE: Computed tomography (CT) of the head was performed without intravenous contrast. The mA wa s adjusted according to patient size. Iterative reconstruction technique was employed. The dose-lengt h product was 605.33 mGy-cm. COMPARISON: 06/18/2023. FINDINGS: No acute intracranial hemorrhage or extra-axial fluid collection. No hydrocephalus, mass, or herniation. No acute ischemic infarct. Unremarkable dural venous sinus attenuation. No acute osseous abnormality. The aerated spaces are clear. Mild atrophy and chronic white matter change. Atherosclerotic intracranial calcification. Bilateral l ens replacements. Old bilateral basal ganglia lacunar infarcts. Focal old infarcts in the left perive ntricular white matter and right frontal lobe. IMPRESSION: No acute intracranial process. Reviewed, dictated and finalized at location K.
--- NOTE | 2023-06-20 20:51 | ED.GENADULT ---
HPI - General Adult General Chief complaint: Fall Stated complaint: UNWITTNESSED FALL, ON BLOOD THINNERS Time Seen by Provider: 06/20/23 20:26 History of Present Illness HPI narrative: patient 72-year-old gentleman who presents emergency department with chief complaint of unwitnessed fall. Patient was found on the ground after sliding out of his bed the patient is on Eliquis and the facility was concerned that he may have a head bleed. Patient currently has no complaints does have prior history of a right above-knee amputation Related Data Home Medications Medication Instructions Recorded Confirmed apixaban 5 mg tablet (Eliquis) mg 05/22/23 empagliflozin 10 mg tablet mg 05/22/23 (Jardiance) fluoxetine 10 mg capsule mg 05/22/23 fluticasone propionate 50 intranasal 05/22/23 mcg/actuation nasal spray,suspension metoprolol tartrate 25 mg tablet mg 05/22/23 risperidone 2 mg tablet mg 05/22/23 Allergies Allergy/AdvReac Type Severity Reaction Status Date / Time No Known Allergies Allergy Verified 06/20/23 20:20 Review of Systems Review of Systems: A 10 system review of systems was completed on the patient and is negative except for what is stated in the HPI. Nursing and ancillary documentation was reviewed. [facility] Past Medical History Medical History Atrial fibrillation History of COPD History of diabetes mellitus History of gastroesophageal reflux (GERD) History of hypertension Social History Social History Substance use: never Living arrangements: [facility] Additional living arrangements comments: [facility] Exam Narrative: GENERAL: Well-appearing, well-nourished, and in no acute distress. HEAD: Normocephalic, atraumatic. EYES: PERRLA and EOMI. ENT: Nares clear, no rhinorrhea or epistaxis. Mucous membranes moist. NECK: Supple. CHEST: Clear to auscultation. No respiratory distress. HEART: Regular rate and rhythm. No murmur heard. Normal peripheral pulses. ABDOMEN: Soft, nontender, nondistended, normal active bowel sounds. EXTREMITIES: Normal range of motion. No edema. there is an amputation present the right lower extremity SKIN: Warm, dry, no rash. NEURO: No focal deficits. Alert and oriented x3. PSYCH: Normal mood and affect. Course Vital Signs Vital signs: Vital Signs Temperature 36.4 C 06/20/23 20:09 Pulse Rate 70 06/20/23 20:09 Respiratory Rate 16 06/20/23 20:09 Blood Pressure 103/85 06/20/23 20:09 Pulse Oximetry 100 06/20/23 20:09 Oxygen Delivery Room Air 06/20/23 20:09 Temperature 36.4 C 06/20/23 20:09 Pulse Rate 70 06/20/23 20:09 Respiratory Rate 16 06/20/23 20:09 Blood Pressure 103/85 06/20/23 20:09 Pulse Oximetry 100 06/20/23 20:09 Oxygen Delivery Room Air 06/20/23 20:09 Medical Decision Making MDM Narrative Medical decision making narrative: differential diagnosis includes head injury, intracranial hemorrhage, cervical spine fracture. Patient has no other complaints at this time laboratory testing was not indicated. Helical imaging will be obtained the head and C-spine CT head CT C-spine showed no acute abnormality Vital Signs Vital Signs: Vital Signs Temperature 36.4 C 06/20/23 20:09 Pulse Rate 70 06/20/23 20:09 Respiratory Rate 16 06/20/23 20:09 Blood Pressure 103/85 06/20/23 20:09 Pulse Oximetry 100 06/20/23 20:09 Oxygen Delivery Room Air 06/20/23 20:09 Temperature 36.4 C 06/20/23 20:09 Pulse Rate 70 06/20/23 20:09 Respiratory Rate 16 06/20/23 20:09 Blood Pressure 103/85 06/20/23 20:09 Pulse Oximetry 100 06/20/23 20:09 Oxygen Delivery Room Air 06/20/23 20:09 Discharge Plan Discharge Clinical Impression: Accidental fall from bed, Head injury Patient Disposition: [facility]st [facility]
--- NOTE | 2023-06-20 22:48 | PC.NURSE ---
report given to [facility], unable to get ahold of [facility] at this time.
== END 2023-06-20 22:49 ==
PROVIDERS: Emergency Provider Emergency Medicine; PCP Hospitalist
DX: S09.90XA Unspecified injury of head, initial encounter (principal); I48.91 Unspecified atrial fibrillation; I10 Essential (primary) hypertension; J44.9 Chronic obstructive pulmonary disease, unspecified; E11.9 Type 2 diabetes mellitus without complications; K21.9 Gastro-esophageal reflux disease without esophagitis; Z89.611 Acquired absence of right leg above knee; Z79.01 Long term (current) use of anticoagulants; Z79.84 Long term (current) use of oral hypoglycemic drugs; W06.XXXA Fall from bed, initial encounter
CPT/HCPCS: 70450; 72125; 99284

== ENCOUNTER 2023-07-07 10:54 | Emergency (ER) | payer MEDICARE, MEDICAID, SELFPAY ==
--- NOTE | ~2023-07-07 | CT_ITS ---
EXAMINATION: CT cervical spine wo con DATE: 07/07/2023 12:13 INDICATION: Neck injury. Fall. TECHNIQUE: Computed tomography (CT) of the cervical spine was performed without intravenous contrast. Automated exposure control and iterative reconstruction technique were employed. The dose-length pro duct was 597.48 mGy-cm. COMPARISON: CT cervical spine 06/20/2023 FINDINGS: There is 10 degrees levoscoliosis of cervical spine. There is kyphosis of cervical spine. T here is interbody fusion from C4 to C7. There is an anterior plate and screws from C5 to C7. Vertebra l body heights are normal. There is mildly decreased disc height at C3-C4 and moderately decreased di sc height at C7-T1. The following disc levels are specifically discussed: C2-C3: There is mild bilateral uncovertebral joint osteoarthritis. There is mild right and severe lef t facet joint osteoarthritis. There is mild left neural foraminal stenosis. There is no central canal stenosis. C3-C4: There is mild right and moderate left uncovertebral joint osteoarthritis. There is mild right and severe left facet joint osteoarthritis. There is mild left neural foraminal stenosis. There is mi ld central canal stenosis. C4-C5: There is moderate bilateral uncovertebral joint hypertrophy. There is ankylosis of the left fa cet joint with moderate hypertrophy. There is mild bilateral neural foraminal stenosis. There is mild central canal stenosis. C5-C6: There is mild bilateral uncovertebral joint hypertrophy. There is mild bilateral facet joint o steoarthritis. There is mild left neural foraminal stenosis. There is no central canal stenosis. C6-C7: There is moderate bilateral uncovertebral joint hypertrophy. There is moderate right and sever e left facet joint osteoarthritis. There is mild bilateral neural foraminal stenosis. There is mild c entral canal stenosis. C7-T1: There is mild bilateral uncovertebral joint osteoarthritis. There is severe bilateral facet summer int osteoarthritis. There is mild bilateral neural foraminal stenosis. There is no central canal sten osis. IMPRESSION: 1. No fracture. 2. Moderate cervical spondylosis. 3. Anterior fusion from C4 to C7. Reviewed, dictated and finalized at location A.
--- NOTE | ~2023-07-07 | XR_ITS ---
EXAMINATION: XR chest 1V portable INDICATION: Shortness of breath TECHNIQUE: Portable AP chest at 1305 hours COMPARISON: 05/21/2023 FINDINGS: There are minimal opacities throughout the right lung and in the left lung base. The cardio mediastinal silhouette is stable. No pleural effusion or pneumothorax. Median sternotomy wires and me diastinal surgical clips are seen, likely from prior coronary artery bypass grafting. IMPRESSION: 1. Diffuse airspace opacities of the right lung and left basilar airspace opacity, atelectasis versus pneumonia. Reviewed, dictated and finalized at location F. IMPRESSION: 1. Diffuse airspace opacities of the right lung and left basilar airspace opaci ty, atelectasis versus pneumonia.
--- NOTE | ~2023-07-07 | CT_ITS ---
EXAMINATION: CT brain wo con DATE: 07/07/2023 12:12 INDICATION: Status post fall. Altered mental status. TECHNIQUE: Computed tomography (CT) of the head was performed without intravenous contrast. The dose- length product was 681.00 mGy-cm. Automated exposure control and iterative reconstruction technique w ere employed. 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 No ventriculomegaly or midline kelton ft. There is intracranial atherosclerosis. Generalized atrophy. There are scattered mild periventricu lar and subcortical white matter changes, most likely related to small vessel ischemic disease (micro angiopathy).basilar cisterns are patent. Midline sagittal images demonstrate a normal corpus callosum and craniovertebral junction. IMPRESSION: 1. No acute intracranial abnormality. Reviewed, dictated and finalized at location L.
[2023-07-07 10:51] VITALS: BP 143/72; PULSE 64; RESP 22; TEMP 35.6
--- NOTE | 2023-07-07 11:00 | ECG_ITS ---
Measurements Intervals [place] Rate: 63 P: -25 MA: 182 QRS: -61 QRSD: 87 T: 79 QT: 424 QTc: 435 Interpretive Statements SINUS RHYTHM INCOMPLETE RIGHT BUNDLE BRANCH BLOCK CANNOT RULE OUT SEPTAL INFARCT, AGE INDETERMINATE BORDERLINE ST-T WAVE ABNORMALITY- HIGH LATERAL LEADS BASELINE ARTIFACT- I, II, III, AVR, AVL, AVF, V1-V6 ABNORMAL ECG COMPARED TO ECG 06/18/2023 15:10:44 NO SIGNIFICANT CHANGES Electronically Signed On 07-07-2023 12:50:30 CDT by Troy Gutierrez D.O.
[2023-07-07 11:19] VITALS: BP 143/72; PULSE 59; RESP 20; O2SAT 95
[2023-07-07 11:36] LABS: Basophils Percent Auto 0.6 % (0.2-1.2); Eosinophils Absolute Auto 0.1 K/mm3 (0-0.3); Eosinophils Percent Auto 1.6 % (0-4.4); Hematocrit 44.5 % (42.0-52.0); Hemoglobin 14.3 g/dL (14.0-18.0); Immature Granulocyte Absolute 0.05 K/mm3 (0.00-0.031); Immature Granulocyte Percent A 0.8 % (0-0.5); Lymphocytes Percent Auto 20.5 % (18.3-44.2); Mean Corpuscular HGB Conc 32.1 g/dl (32-36); Mean Corpuscular Hemoglobin 28.8 pg (26-34); Mean Corpuscular Volume 89.7 fl (80-100); Mean Platelet Volume 10.7 fl (7.4-10.4); Monocytes Absolute Auto 0.6 K/mm3 (0.1-0.6); Monocytes Percent Auto 9.5 % (2.6-8.5); Neutrophils Absolute Auto 4.3 K/mm3 (1.3-6.7); Platelet Count Result 211 k/mm3 (150-375); Red Blood Count 4.96 M/mm3 (4.6-6.20); Red Cell Distribution Width 13.8 % (11.5-14.5); White Blood Count 6.3 K/mm3 (4.5-10.0)
[2023-07-07 11:41] LABS: Appearance Urine Clear (Clear); Bilirubin Urine Negative (Negative); Blood Urine Negative (Negative); Color Urine Yellow (Yellow); Glucose Urine UA 3+ mg/dL (Negative); Ketones Urine Trace mg/dL (Negative); Leukocyte Esterase Ur Negative LEU/UL (Negative); Nitrate Urine Negative (Negative); Protein Urine Negative (Negative); Specific Grav Ur 1.021 (1.001-1.035); Urobilinogen Urine 0.2 mg/dL (<2.0)
--- NOTE | 2023-07-07 11:43 | PC.NURSE ---
1143: Pt found sitting up naked with all monitors off. Pt ripped his IV out. This RN cleaned up the blood, got pt hooked back up to monitor and redresssed.
[2023-07-07 11:47] LABS: Alanine Aminotransferase 24 U/L (6-50); Albumin Level 3.6 g/dL (3.5-5.1); Alkaline Phosphatase 71 U/L (38-126); Anion Gap 6 mmol/L (4-12); Aspartate Amino Transferase 17 U/L (17-59); Bilirubin,Total 0.5 mg/dL (0.2-1.3); Blood Urea Nitrogen 16 mg/dL (9-20); Calcium 9.2 mg/dL (8.4-10.2); Carbon Dioxide 27 mmol/L (22-30); Chloride 102 mmol/L (98-107); Estimated CRCL calculation 86 ml/min; Estimated Glomerular Filt Rate 60; Glucose 187 mg/dL (65-110); Potassium 4.2 mmol/L (3.4-5.0); Sodium 135 mmol/L (137-145)
[2023-07-07 11:51] LABS: Add Urine Microscopic? NO
[2023-07-07 11:53] LABS: INR 1.1
[2023-07-07 11:54] LABS: Partial Thromboplastin Time 30.2 Seconds (22.3-36.8)
--- NOTE | 2023-07-07 12:40 | ED.FALL ---
HPI - Fall General Chief Complaint: Fall Stated Complaint: fall, low BP Time Seen by Provider: 07/07/23 11:55 History of Present Illness HPI Narrative: 72-year-old male presenting to the emergency department for evaluation after a fall around a.m.. longterm is reported that the patient is normally A+O x 2-3 and may be at his baseline now. Patient denies any complaints other than shortness of breath. Patient is on blood thinners and is unaware if he hit his head and does not recall the fall. Related Data Home Medications Medication Instructions Recorded Confirmed apixaban 5 mg tablet (Eliquis) mg 05/22/23 empagliflozin 10 mg tablet mg 05/22/23 (Jardiance) fluoxetine 10 mg capsule mg 05/22/23 metoprolol tartrate 25 mg tablet mg 05/22/23 risperidone 2 mg tablet mg 05/22/23 Allergies Allergy/AdvReac Type Severity Reaction Status Date / Time No Known Allergies Allergy Verified 07/07/23 11:17 Review of Systems Review of Systems: All systems reviewed & are unremarkable except as noted in HPI and below PMFSH Past Medical History Medical History Atrial fibrillation History of COPD History of diabetes mellitus History of gastroesophageal reflux (GERD) History of hypertension Social History Social History Substance use: never Living arrangements: custodial Additional living arrangements comments: [facility] Exam Narrative: APPEARANCE: Well appearing, no pain, no distress, well-nourished. HEAD: normocephalic, atraumatic. EYES: PERRLA/EOMI, conjunctivae clear. NOSE: Normal no drainage EARS:TMS clear with good light reflex. THROAT: Pharynx clear, no exudate. NECK: Supple. No adenopathy, no masses. RESPIRATORY: Airway patent, respirations nonlabored. Clear to auscultation bilaterally, no rales, rhonchi, wheezing. CARDIOVASCULAR: Regular rate and rhythm without murmurs rubs or gallops. ABDOMINAL: Soft, nontender, nondistended, normal bowel sounds MUSCULOSKELETAL: Moves all extremities. Strength/ROM intact, No edema, No calf tenderness. NEURO: Alert. Cranial nerves II through XII intact. Grossly intact SKIN: Warm, dry. Normal Color Course Course Emergency Course: Imaging was negative and patient was transferred back to his care facility. Vital Signs Vital signs: Vital Signs Temperature 96.1 F L 07/07/23 10:51 Pulse Rate 64 07/07/23 10:51 Respiratory Rate 22 H 07/07/23 10:51 Blood Pressure 143/72 H 07/07/23 10:51 Oxygen Delivery Room Air 07/07/23 10:51 Temperature 96.1 F L 07/07/23 10:51 Pulse Rate 98 07/07/23 15:24 Respiratory Rate 18 07/07/23 15:24 Blood Pressure 104/42 L 07/07/23 15:24 Pulse Oximetry 95 07/07/23 15:24 Oxygen Delivery Room Air 07/07/23 10:51 MDM - Fall MDM Narrative Medical decision making narrative: 72-year-old male presenting emergency department for evaluation for potential altered mental status after a ground level fall. The only complaint patient has is feeling short of breath. Patient is afebrile with no leukocytosis and a stable hemoglobin. Patient has no acute changes on his CMP. UA shows no evidence of infection. Head CT shows no acute intracranial abnormality and cervical CT shows no acute fracture dislocation. Differential Diagnosis Differential diagnosis: Likely concussion with loss of consciousness and concussion without loss of consciousness Lab Data Attestation: I reviewed the patient's lab results. 07/07/23 11:29 07/07/23 11:29 Labs: Lab Results 07/07/23 07/07/23 Range/Units 11:29 12:48 WBC 6.3 (4.5-10.0) K/mm3 RBC 4.96 (4.6-6.20) M/mm3 Hgb 14.3 (14.0-18.0) g/dL Hct 44.5 (42.0-52.0) % MCV 89.7 (80-100) fl MCH 28.8 (26-34) pg MCHC 32.1 (32-36) g/dl RDW 13.8 (11.5-14.5) % Plt Count 211 (150-375)
[2023-07-07 13:32] LABS: Influenza A QL RT-PCR Negative (Negative); Influenza B QL RT-PCR Negative (Negative); RSV RNA, RT-PCR Negative (Negative); SARS-CoV-2 RNA PCR Negative (Negative)
--- NOTE | 2023-07-07 15:23 | PC.NURSE ---
1523: [facility] and daughter contacted. They state the way he has been acting is normal for him.
[2023-07-07 15:24] VITALS: BP 104/42; PULSE 98; RESP 18; O2SAT 95
== END 2023-07-07 15:47 ==
PROVIDERS: Student in an Organized Health Care Education/Training Program; Emergency Provider Emergency Medicine; PCP Hospitalist
DX: S09.90XA Unspecified injury of head, initial encounter (principal); Z20.822 Contact with and (suspected) exposure to COVID-19; I48.91 Unspecified atrial fibrillation; I10 Essential (primary) hypertension; J44.9 Chronic obstructive pulmonary disease, unspecified; E11.9 Type 2 diabetes mellitus without complications; K21.9 Gastro-esophageal reflux disease without esophagitis; Z98.1 Arthrodesis status; Z79.84 Long term (current) use of oral hypoglycemic drugs; Z79.01 Long term (current) use of anticoagulants; M47.812 Spondylosis without myelopathy or radiculopathy, cervical region; R91.8 Other nonspecific abnormal finding of lung field; W19.XXXA Unspecified fall, initial encounter
CPT/HCPCS: 36415; 70450; 71045; 72125; 80053; 81003; 85025; 85610; 85730; 87637; 93005; 99284

== ENCOUNTER 2024-08-18 01:04 | Emergency (ER) | payer MEDICARE, MEDICAID, SELFPAY ==
--- NOTE | ~2024-08-18 | CT_ITS ---
EXAMINATION: CT abdomen pelvis w con DATE: 08/18/2024 02:38 INDICATION: Diffuse abdominal pains TECHNIQUE: Computed tomography (CT) of the abdomen and pelvis was performed with 100 mL Omnipaque-350 intravenous contrast. Automated exposure control and iterative reconstruction technique were employe d. The dose-length product was 1570.74 mGy-cm. COMPARISON: None FINDINGS: Mild elevation the left hemidiaphragm. Lung bases are clear. Heart size is normal. Atherosclerotic co ronary artery calcifications change of prior median sternotomy and coronary artery bypass grafting. N o pericardial or pleural effusion. Liver, gallbladder, spleen, pancreas, bilateral kidneys 9and left adrenal gland are normal. 1.4 cm right adrenal adenoma with characteristic low-attenuation evident on the prior noncontrast CT studies of the spine dated 06/10/2023 and 06/18/2023. Bowels including the appe ndix are normal with moderate to large amount of colonic stool. Single focus of gas in the nondepende nt bladder. No free intraperitoneal gas or fluid. No pathologically enlarged abdominal or pelvic lymp hadenopathy. Moderate thoracic and lumbar spondylosis. IMPRESSION: 1. Tiny focus of gas in the bladder. Correlate for history of recent instrumentation/Reese catheteriz ation or with urinalysis. 2. No other acute intra-abdominal/pelvic process. Reviewed, dictated and finalized at location A. IMPRESSION: 1. Tiny focus of gas in the bladder. Correlate for history of recent instrument ation/Reese catheterization or with urinalysis. 2. No other acute intra-abdominal/pelvic process.
[2024-08-18 01:02] VITALS: BP 153/82; PULSE 69; RESP 24; TEMP 36.3; O2SAT 97
--- NOTE | 2024-08-18 01:12 | ECG_ITS ---
Test Date: 2024-08-18 01:24:26 Measurements Intervals [place] Rate: 68 P: 244 MT: 159 QRS: -74 QRSD: 144 T: 65 QT: 420 QTc: 449 Interpretive Statements SINUS RHYTHM LEFT AXIS DEVIATION [QRS AXIS < -30] INTRAVENTRICULAR CONDUCTION DELAY [130+ ms QRS DURATION] Poor R wave progression No previous ECG available for comparison Electronically Signed On 08-18-2024 15:39:12 CDT by Trell Mcdaniel M.D.
[2024-08-18 01:17] VITALS: BP 163/78; PULSE 69; RESP 17; O2SAT 96
[2024-08-18 01:26] LABS: Basophils Absolute Auto 0.1 K/mm3 (0.0-0.1); Basophils Percent Auto 0.5 % (0.2-1.2); Eosinophils Absolute Auto 0.1 K/mm3 (0-0.3); Hematocrit 49.7 % (42.0-52.0); Hemoglobin 16.1 g/dL (14.0-18.0); Immature Granulocyte Absolute 0.07 K/mm3 (0.00-0.031); Immature Granulocyte Percent A 0.7 % (0-0.5); Lymphocytes Percent Auto 14.9 % (18.3-44.2); Mean Corpuscular HGB Conc 32.4 g/dl (32-36); Mean Corpuscular Hemoglobin 28.5 pg (26-34); Mean Corpuscular Volume 88.1 fl (80-100); Mean Platelet Volume 9.8 fl (7.4-10.4); Monocytes Absolute Auto 0.7 K/mm3 (0.1-0.6); Monocytes Percent Auto 6.9 % (2.6-8.5); Neutrophils Absolute Auto 7.7 K/mm3 (1.3-6.7); Platelet Count Result 205 k/mm3 (150-375); Red Blood Count 5.64 M/mm3 (4.6-6.20); Red Cell Distribution Width 13.8 % (11.5-14.5); White Blood Count 10.1 K/mm3 (4.5-10.0)
[2024-08-18 01:43] LABS: Add Urine Microscopic? YES; Appearance Urine Clear (Clear); Bacteria Urine 4+ /hpf; Bilirubin Urine Negative (Negative); Blood Urine Negative (Negative); Color Urine Yellow (Yellow); Glucose Urine UA 3+ mg/dL (Negative); Ketones Urine Trace mg/dL (Negative); Leukocyte Esterase Ur 2+ LEU/UL (Negative); Nitrate Urine Positive (Negative); Non Pathogenic Casts 0-2; Protein Urine Negative (Negative); RBC Urine 0-2 /hpf (0-2); Specific Grav Ur 1.023 (1.001-1.035); Squamous Epithelial Cell Urine None Seen /hpf (Few); WBC Urine >100 /hpf (0-3)
[2024-08-18 01:47] LABS: Alanine Aminotransferase 109 U/L (6-50); Albumin Level 3.7 g/dL (3.5-5.1); Alkaline Phosphatase 122 U/L (38-126); Anion Gap 7 mmol/L (4-12); Aspartate Amino Transferase 124 U/L (17-59); Bilirubin,Total 1.8 mg/dL (0.2-1.3); Blood Urea Nitrogen 22 mg/dL (9-20); Calcium 8.6 mg/dL (8.4-10.2); Carbon Dioxide 28 mmol/L (22-30); Chloride 102 mmol/L (98-107); Estimated CRCL calculation 64 ml/min; Estimated Glomerular Filt Rate 59; Glucose 172 mg/dL (65-110); Lipase 69 U/L (23-300); Potassium 4.2 mmol/L (3.4-5.0); Sodium 137 mmol/L (137-145)
[2024-08-18 02:53] VITALS: BP 170/75; PULSE 74; RESP 16; O2SAT 96
[2024-08-18 04:51] VITALS: BP 141/78; PULSE 89; RESP 17; O2SAT 97
--- NOTE | 2024-08-18 06:32 | ED_ITS ---
HPI - General Adult General Chief complaint: Abdominal Pain <Angelo Monson MD - Last Filed: 08/18/24 06:54> Stated complaint: RUQ ABD PAIN <Angelo Monson MD - Last Filed: 08/18/24 06:54> Time Seen by Provider: 08/18/24 01:34 <Angelo Monson MD - Last Filed: 08/18/24 06:54> History of Present Illness HPI narrative: This is a 73-year-old male presenting with a chief complaint of diffuse abdominal pain. Pain is been ongoing for the last 2 days. Pain is sharp and comes and goes. It is in different parts of his abdomen throughout the day. Associated with nausea and vomiting. He denies fevers chills chest pain or difficulty breathing. Patient says that he last had a bowel movement 2 days ago. He has been passing gas. <Angelo Monson MD - Last Filed: 08/18/24 06:54> Related Data Home medications: Home Medications ?Medication ?Instructions ?Recorded ?Confirmed ?Last Taken ?Type apixaban 5 mg tablet (Eliquis) mg 05/22/23 Unknown History empagliflozin 10 mg tablet mg 05/22/23 Unknown History (Jardiance) fluoxetine 10 mg capsule mg 05/22/23 Unknown History metoprolol tartrate 25 mg tablet mg 05/22/23 Unknown History risperidone 2 mg tablet mg 05/22/23 Unknown History <Angelo Monson MD - Last Filed: 08/18/24 06:54> Allergies/adverse reactions: Allergies Allergy/AdvReac Type Severity Reaction Status Date / Time No Known Allergies Allergy Verified 07/07/23 11:17 <Angelo Monson MD - Last Filed: 08/18/24 06:54> [facility] Past Medical History Medical History: Medical History Atrial fibrillation History of gastroesophageal reflux (GERD) History of COPD History of hypertension History of diabetes mellitus <Angelo Monson MD - Last Filed: 08/18/24 06:54> Social History Social History: Social History Substance use: never Living arrangements: intermediate Additional living arrangements comments: [facility] <Angelo Monson MD - Last Filed: 08/18/24 06:54> Exam 2 Narrative: APPEARANCE: No apparent distress. Head: atraumatic. EYES: EOMI, NOSE: Atraumatic NECK: Trachea midline RESPIRATORY: No increased rate of breathing clear to auscultation CARDIOVASCULAR: RRR, no peripheral edema ABDOMINAL: Obese, nondistended, no focal tenderness guarding or rebound, no CVA tenderness MUSCULOSKELETAl: No obvious deformities NEURO: Alert. Moving 4/4 extremities SKIN:: Warm, dry. Normal color PSYCHIATRIC: Normal affect <Angelo Monson MD - Last Filed: 08/18/24 06:54> Course Vital Signs Vital signs: Vital Signs Temperature 36.3 C L 08/18/24 01:02 Pulse Rate 69 08/18/24 01:02 Respiratory Rate 24 H 08/18/24 01:02 Blood Pressure 153/82 H 08/18/24 01:02 Pulse Oximetry 97 08/18/24 01:02 Oxygen Delivery Room Air 08/18/24 01:02 Temperature 36.3 C L 08/18/24 01:02 Pulse Rate 100 08/18/24 07:46 Respiratory Rate 18 08/18/24 07:46 Blood Pressure 137/99 H 08/18/24 07:46 Pulse Oximetry 100 08/18/24 07:46 Oxygen Delivery Room Air 08/18/24 01:02 <Angelo Monson MD - Last Filed: 08/18/24 06:54> Vital Signs Temperature 36.3 C L 08/18/24 01:02 Pulse Rate 69 08/18/24 01:02 Respiratory Rate 24 H 08/18/24 01:02 Blood Pressure 153/82 H 08/18/24 01:02 Pulse Oximetry 97 08/18/24 01:02 Oxygen Delivery Room Air 08/18/24 01:02 Temperature 36.3 C L 08/18/24 01:02 Pulse Rate 100 08/18/24 07:46 Respiratory Rate 18 08/18/24 07:46 Blood Pressure 137/99 H 08/18/24 07:46 Pulse Oximetry 100 08/18/24 07:46 Oxygen Delivery Room Air 08/18/24 01:02 <Lani Christianson MD - Last Filed: 08/18/24 08:16> Medical Decision Making [facility] Narrative Medical decision making narrative: -Course: 73-year-old male presenting with nausea, vomiting and abdominal pain. CT abdomen pelvis showed distended stomach but no signs of obstruction. No other definitive findings. Laboratory studies within normal limits. He received fluids and antiemetics and is feeling better. He is able to tolerate p.o.. He will be discharged back to intermediate with antiemetics and return precautions. Incidentally he was found have a urinary tract infection. He was given a dose of IV ceftriaxone ED will be discharged on cefdinir. -DDX includes but is not limited to: Gastroenteritis, bowel obstruction, gastroparesis cholecystitis, appendicitis, diverticulitis <Angelo Monson MD - Last Filed: 08/18/24 06:54> Vital Signs Vital Signs: Vital Signs Temperature 36.3 C L 08/18/24 01:02 Pulse Rate 69 08/18/24 01:02 Respiratory Rate 24 H 08/18/24 01:02 Blood Pressure 153/82 H 08/18/24 01:02 Pulse Oximetry 97 08/18/24 01:02 Oxygen Delivery Room Air 08/18/24 01:02 Temperature 36.3 C L 08/18/24 01:02 Pulse Rate 100 08/18/24 07:46 Respiratory Rate 18 08/18/24 07:46 Blood Pressure 137/99 H 08/18/24 07:46 Pulse Oximetry 100 08/18/24 07:46 Oxygen Delivery Room Air 08/18/24 01:02 <Angelo Monson MD - Last Filed: 08/18/24 06:54> Vital Signs Temperature 36.3 C L 08/18/24 01:02 Pulse Rate 69 08/18/24 01:02 Respiratory Rate 24 H 08/18/24 01:02 Blood Pressure 153/82 H 08/18/24 01:02 Pulse Oximetry 97 08/18/24 01:02 Oxygen Delivery Room Air 08/18/24 01:02 Temperature 36.3 C L 08/18/24 01:02 Pulse Rate 100 08/18/24 07:46 Respiratory Rate 18 08/18/24 07:46 Blood Pressure 137/99 H 08/18/24 07:46 Pulse Oximetry 100 08/18/24 07:46 Oxygen Delivery Room Air 08/18/24 01:02 <Lani Christianson MD - Last Filed: 08/18/24 08:16> Lab Data Result diagrams: 08/18/24 01:17 08/18/24 01:17 <Angelo Monson MD - Last Filed: 08/18/24 06:54> Labs: Lab Results 08/18/24 08/18/24 Range/Units 01:17 01:33 WBC 10.1 H (4.5-10.0) K/mm3 RBC 5.64 (4.6-6.20) M/mm3 Hgb 16.1 (14.0-18.0) g/dL Hct 49.7 (42.0-52.0) % MCV 88.1 (80-100) fl MCH 28.5 (26-34) pg MCHC 32.4 (32-36) g/dl RDW 13.8 (11.5-14.5) % Plt Count 205 (150-375) k/mm3 MPV 9.8 (7.4-10.4) fl Immature Gran % (Auto) 0.7 H (0-0.5) % Neut % (Auto) 76.0 H (45.5-73.1) % Lymph % (Auto) 14.9 L (18.3-44.2) % Bell % (Auto) 6.9 (2.6-8.5) % Eos % (Auto) 1.0 (0-4.4) % Baso % (Auto) 0.5 (0.2-1.2) % Lymph # (Auto) 1.50 (0.9-3.2) K/mm3 Bell # (Auto) 0.7 H (0.1-0.6) K/mm3 Eos # (Auto) 0.1 (0-0.3) K/mm3 Baso # (Auto) 0.1 (0.0-0.1) K/mm3 Abs Immat Gran (auto) 0.07 H (0.00-0.031) K/mm3 Absolute Neuts (auto) 7.7 H (1.3-6.7) K/mm3 Absolute Nucleated RBC 0.000 (0.0-0.012) K/mm3 Nucleated RBC % 0.0 (0.0-0.2) % Sodium 137 (137-145) mmol/L Potassium 4.2 (3.4-5.0) mmol/L Chloride 102 (98-107) mmol/L Carbon Dioxide 28 (22-30) mmol/L Anion Gap 7 (4-12) mmol/L BUN 22 H (9-20) mg/dL Creatinine 1.21 (0.7-1.3) mg/dL Estim Creat Clear Calc 64 ml/min Estimated GFR 59 (59 - ) Glucose 172 H (65-110) mg/dL Calcium 8.6 (8.4-10.2) mg/dL Total Bilirubin 1.8 H (0.2-1.3) mg/dL AST 124 H (17-59) U/L ALT 109 H (6-50) U/L Alkaline Phosphatase 122 (38-126) U/L Total Protein 7.0 (6.3-8.2) g/dL Albumin 3.7 (3.5-5.1) g/dL Lipase 69 (23-300) U/L Urine Color Yellow (Yellow) Urine Appearance Clear (Clear) Urine pH 8.0 (5.0-9.0) Ur Specific [place] 1.023 (1.001-1.035) Urine Protein Negative (Negative) mg/dL Urine Glucose (UA) 3+ H (Negative) mg/dL Urine Ketones Trace H (Negative) mg/dL Ur Blood (Man) Negative (Negative) Urine Nitrate Positive H (Negative) Urine Bilirubin Negative (Negative) Urine Urobilinogen 4.0 H (<2.0) mg/dL Leukocyte Esterase Rfl 2+ H (Negative) SHIRLEY/UL Urine RBC 0-2 (0-2) /hpf Urine WBC >100 H (0-3) /hpf Ur Squamous Epith Cells None seen (Few) /hpf Urine Bacteria 4+ H /hpf Urine Casts 0-2 <Angelo Monson MD - Last Filed: 08/18/24 06:54> Lab Results 08/18/24 08/18/24 Range/Units 01:17 01:33 WBC 10.1 H (4.5-10.0) K/mm3 RBC 5.64 (4.6-6.20) M/mm3 Hgb 16.1 (14.0-18.0) g/dL Hct 49.7 (42.0-52.0) % MCV 88.1 (80-100) fl MCH 28.5 (26-34) pg MCHC 32.4 (32-36) g/dl RDW 13.8 (11.5-14.5) % Plt Count 205 (150-375) k/mm3 MPV 9.8 (7.4-10.4) fl Immature Gran % (Auto) 0.7 H (0-0.5) % Neut % (Auto) 76.0 H (45.5-73.1) % Lymph % (Auto) 14.9 L (18.3-44.2) % Bell % (Auto) 6.9 (2.6-8.5) % Eos % (Auto) 1.0 (0-4.4) % Baso % (Auto) 0.5 (0.2-1.2) % Lymph # (Auto) 1.50 (0.9-3.2) K/mm3 Bell # (Auto) 0.7 H (0.1-0.6) K/mm3 Eos # (Auto) 0.1 (0-0.3) K/mm3 Baso # (Auto) 0.1 (0.0-0.1) K/mm3 Abs Immat Gran (auto) 0.07 H (0.00-0.031) K/mm3 Absolute Neuts (auto) 7.7 H (1.3-6.7) K/mm3 Absolute Nucleated RBC 0.000 (0.0-0.012) K/mm3 Nucleated RBC % 0.0 (0.0-0.2) % Sodium 137 (137-145) mmol/L Potassium 4.2 (3.4-5.0) mmol/L Chloride 102 (98-107) mmol/L Carbon Dioxide 28 (22-30) mmol/L Anion Gap 7 (4-12) mmol/L BUN 22 H (9-20) mg/dL Creatinine 1.21 (0.7-1.3) mg/dL Estim Creat Clear Calc 64 ml/min Estimated GFR 59 (59 - ) Glucose 172 H (65-110) mg/dL Calcium 8.6 (8.4-10.2) mg/dL Total Bilirubin 1.8 H (0.2-1.3) mg/dL AST 124 H (17-59) U/L ALT 109 H (6-50) U/L Alkaline Phosphatase 122 (38-126) U/L Total Protein 7.0 (6.3-8.2) g/dL Albumin 3.7 (3.5-5.1) g/dL Lipase 69 (23-300) U/L Urine Color Yellow (Yellow) Urine Appearance Clear (Clear) Urine pH 8.0 (5.0-9.0) Ur Specific [place] 1.023 (1.001-1.035) Urine Protein Negative (Negative) mg/dL Urine Glucose (UA) 3+ H (Negative) mg/dL Urine Ketones Trace H (Negative) mg/dL Ur Blood (Man) Negative (Negative) Urine Nitrate Positive H (Negative) Urine Bilirubin Negative (Negative) Urine Urobilinogen 4.0 H (<2.0) mg/dL Leukocyte Esterase Rfl 2+ H (Negative) SHIRLEY/UL Urine RBC 0-2 (0-2) /hpf Urine WBC >100 H (0-3) /hpf Ur Squamous Epith Cells None seen (Few) /hpf Urine Bacteria 4+ H /hpf Urine Casts 0-2 <Lani Christianson MD - Last Filed: 08/18/24 08:16> Imaging Data Attestation: I personally reviewed and interpreted this imaging study as follows: < Lani Christianson MD - Last Filed: 08/18/24 08:16> Radiologist's impression: Impressions Abdomen/Pelvis CT 08/18/24 07:50 IMPRESSION: 1. Tiny focus of gas in the bladder. Correlate for history of recent instrumentation/Reese catheterization or with urinalysis. 2. No other acute intra-abdominal/pelvic process. <Lani Christianson MD - Last Filed: 08/18/24 08:16> Discharge Plan Discharge Clinical Impression: Nausea & vomiting, Acute UTI <Angelo Monson MD - Last Filed: 08/18/24 06:54> Patient Disposition: NH [facility]/Asst Living <Angelo Monson MD - Last Filed: 08/18/24 06:54> Condition: Stable <Angelo Monson MD - Last Filed: 08/18/24 06:54> Instructions: Antibiotic Form, Acute Nausea and Vomiting (DC) <Angelo Monson MD - Last Filed: 08/18/24 06:54> Additional Instructions: You were seen in the emergency department for nausea and vomiting. Please use Zofran your symptoms. Please eat a bland diet. You were also found have a urinary tract infection. Please complete a course of cefdinir. If you develop intractable nausea vomiting, severe abdominal pain fevers or failure condition is getting worse please return to the ED immediately for re-evaluation. <Angelo Monson MD - Last Filed: 08/18/24 06:54> Patient Language: [place] <Angelo Monson MD - Last Filed: 08/18/24 06:54> Prescriptions: New ondansetron 4 mg tablet,disintegrating 4 mg PO Q8H PRN (Reason: nausea and vomiting) Qty: 30 0RF cefdinir 300 mg capsule 300 mg PO Q12H Qty: 14 0RF No Action risperidone 2 mg tablet fluoxetine 10 mg capsule metoprolol tartrate 25 mg tablet Eliquis 5 mg tablet Jardiance 10 mg tablet cephalexin 500 mg capsule 500 mg PO Q12H 5 Days Qty: 10 0RF fluconazole 200 mg tablet 200 mg PO DAILY 13 Days Qty: 13 0RF Rx Instructions: first dose given 06/17; rest of dose to begin 06/18 <Angelo Monson MD - Last Filed: 08/18/24 06:54> Follow-up/Referrals: Jese Jane MD [Primary Care Provider] - <Angelo Monson MD - Last Filed: 08/18/24 06:54>
[2024-08-18] MEDS: METOCLOPRAMIDE HCL INJ 10 MG/2 ML VIAL IV PUSH (07:10)
[2024-08-18 07:46] VITALS: BP 137/99; PULSE 100; RESP 18; O2SAT 100
== END 2024-08-18 09:00 ==
PROVIDERS: Emergency Medicine; Emergency Provider Emergency Medicine; PCP Hospitalist
DX: R11.2 Nausea with vomiting, unspecified (principal); N39.0 Urinary tract infection, site not specified; I48.91 Unspecified atrial fibrillation; I10 Essential (primary) hypertension; J44.9 Chronic obstructive pulmonary disease, unspecified; E11.9 Type 2 diabetes mellitus without complications; K21.9 Gastro-esophageal reflux disease without esophagitis; Z79.899 Other long term (current) drug therapy; Z79.84 Long term (current) use of oral hypoglycemic drugs; Z79.01 Long term (current) use of anticoagulants
CPT/HCPCS: 36415; 74177; 80053; 81001; 83690; 85025; 87086; 87186; 93005; 96365; 96375; 99284; J0696; J2765; Q9967